=== PATIENT | female | born 1990 | race Caucasian/White ===

== ENCOUNTER 2020-01-11 03:20 | Emergency (ER) | payer OTHER | END 2020-01-11 04:45 | disposition other institution (70) | LOC: ED 03:20 | DX: Z02.89 Encounter for other administrative examinations (principal) ==

== ENCOUNTER 2020-01-11 03:20 | Emergency (ER) | payer SELFPAY ==
[~2020-01-11] VITALS: Ht 152.4 cm; Wt 95.3 kg
[2020-01-11 03:29] VITALS: Ht 152.4 cm; Wt 95.3 kg
[2020-01-11 04:48] VITALS: BP 119/74
== END 2020-01-11 04:45 | disposition home or self-care (01) ==
LOC: ED 03:20
DX: S61.305A Unspecified open wound of left ring finger with damage to nail, initial encounter (principal); E11.65 Type 2 diabetes mellitus with hyperglycemia; Z90.89 Acquired absence of other organs; X58.XXXA Exposure to other specified factors, initial encounter; Y93.89 Activity, other specified; Y92.89 Other specified places as the place of occurrence of the external cause; Y99.8 Other external cause status
CPT/HCPCS: 82962